=== PATIENT | male | born 1955 | race Caucasian/White ===

== ENCOUNTER 2016-12-01 10:41 | Observation (INO) ==
--- NOTE | 2016-12-01 13:57 | Nuclear Medicine Stress Report ---
Exercise Nuclear Stress Name: Abram Ron Date of Study: 12/01/2016 Date: 1955 Ht: 71.0 in Medical Record#: [id number] Age: 61 Wt: 176.0 lb Gender: Male Order #: [id number] Location: [facility] OP Room: opt Supervising Provider: Audra Fatima CNP Reading Physician: Ian Landry MD, FACC Ordering Physician: Josh Mason DO,FACGail,LAVELL,RC Primary Care Physician: Carmella Dao DO Stress Technologist: Sangeeta Tian, MARKETING OPERATIONS ASSOCIATE, CCT, CPFT Ophthalmology Surgical Technician: Brent Henriquez Indications: Chest Pain Impression: The exercise capacity was average. Exercise ECG is positive for ischemia with [address] depressions in the lateral leads. Gated LVEF = 53%. There is a large size, moderate-severe intensity, reversible perfusion defect involving the basal-apical anterior wall, basal-mid anterolateral wall, and apical lateral wall. Findings are consistent with a large area of reversible myocardial ischemia (LAD territory). There is mild transient ischemic dilatation. Findings discussed with patient. We will be admitted to the hospital for cardiac catheterization. History: Hypertension Diabetes Hypercholesteremia Prior PCI Stress Test Summary: Stress Test Type: Treadmill Protocol: Teto Baseline Information: Initial Heart Rate: 75 Blood Pressure: 120/60 Stress Information: Stress Time: 6 min 00 sec Test Terminated Due to (primary): Dyspnea Maximum Blood Pressure: 156/54 Maximum Heart Rate: 159 Percent Maximum Heart Rate Achieved: 99 Double Product: 35119 METS Reached: 7 Symptoms: Shortness of breath Nuclear Summary: SPECT myocardial perfusion imaging using Tc99m Sestamibi given intravenously was performed at rest and following cardiac stress testing. The resting images were obtained following initial dose of 11.6 mCi. Following stress an additional dose of 32.2 mCi was given at peak exercise or 30 seconds post regadenoson infusion. Findings: Stress Note * Resting ECG demonstrated normal sinus rhythm. * No baseline arrhythmias were noted. * The exercise capacity was average. * Patient had no chest pain during stress. * No arrhythmias were noted during stress. * Exercise ECG is positive for ischemia with [address] depressions in the lateral leads. Hemodynamic responses * Normal hemodynamic responses to exercise. Gated EF % * Gated LVEF = 53%. Left Ventricle * The left ventricle is not dilated. * Normal Segmental Perfusion in rest. * There is a large size, moderate-severe intensity, reversible perfusion defect involving the basal-apical anterior wall, basal-mid anterolateral wall, and apical lateral wall. * Findings are consistent with a large area of reversible myocardial ischemia (LAD territory). TID * There is mild transient ischemic dilatation. Updated by Ian Landry MD, [facility] on 12/01/2016 1:52:30 PM electronically signed on 12/01/2016 1:52:58 PM with status of Final
--- NOTE | 2016-12-01 14:35 | Cardiology History & Physical ---
Date of Encounter: 12/01/16 Time of Encounter: 14:20 Assessment and Plan (1) Abnormal stress test Current Visit: Yes Status: Acute Stress test positive for large area of reversible ischemia in the LAD territory , ischemic EKG changes, blunted b/p response and TID. Recommended for admission for [facility]. Indications, risks, alternatives, and benefits discussed and he agrees to proceed. Discussed with Dr. Fisher. Will give lovenox SQ x1 tonight. Check labs and CXR. [facility] in am. Continue asa, plavix, statin, and bb. TTE pending. (2) Unstable angina Current Visit: Yes Status: Acute Currently pain free. NTG SL PRN. See plan above. (3) CAD (coronary artery disease) Current Visit: Yes Status: Acute H/o TN and previous PCI. Last [facility] 07/10/2014: Left main normal. LAD proximal 95% stenosis, PTCA/MARCY placed. Circumflex, OM1 normal. RCA distal RCA patent stent. RPDA 50% stenosis. Echocardiogram 07/08/2014: EF 55-60%. Moderate asymmetric hypertrophy of the basal septum. Moderate diastolic dysfunction. No valvular dysfunction. Repeat TTE pending. Qualifiers: Coronary Disease-Associated Artery/Lesion type: [place] artery [place] vs. transplanted heart: [place] heart Associated angina: with unstable angina Qualified Code(s): I25.110 - Atherosclerotic heart disease of [place] coronary artery with unstable angina pectoris (4) Diabetes Current Visit: No Status: Chronic Continue home medications. On metformin, will be held per [facility] protocal. Will assess blood sugars and provide coverage if needed during stay. Qualifiers: Diabetes mellitus type: type 2 Diabetes mellitus complication status: without complication Diabetes mellitus ocean transportation intermediary insulin use: without ocean transportation intermediary use Qualified Code(s): E11.9 - Type 2 diabetes mellitus without complications History of Present Illness Chief complaint: chest discomfort HPI: Mr. Ron is a 61 year old male with a history of CAD, TN s/p prior PCI to the LAD and RCA, HLD, HTN, and diabetes type II. He presented today for a stress test and echocardiogram in the out-pt cardiopulmonary lab. 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 He described a mid-sternal burning that sometimes occurred with activity. No chest discomfort in the last week. Admits to occasional SOB with exertion. Stress test revealed severe intensity reversible defect in the LAD territory. D/t severity of stress test he was recommended to be admitted for C. Past Med Surg Social Fam HX - Past Medical History Attestation: Yes The following information was validated with the patient. Medical history: coronary artery disease, diabetes, hyperlipidemia, hypertension - Past Surgical History Surgical History: angioplasty/stent (9 stnets) - Social History Smoking Status: Never smoker Smokeless Tobacco Status: No Alcohol use: none Medications and Allergies Amlodipine 03/02/16 [History] Aspirin 81 mg 03/02/16 [History] Lipitor 40 mg 03/02/16 [History] Losartan 100 gm DAILY 03/02/16 [History] Metoprolol 100 mg DAILY 03/02/16 [History] Azithromycin [Azithromycin 6-Tab Pack] 250 mg PO DAILY #6 tab 06/15/16 [Rx] GuaiFENesin ER [Mucinex] 1 - 2 tab PO BID PRN #40 tab 06/15/16 [Rx] Clopidogrel [Plavix] 75 mg PO DAILY 12/01/16 [History] Allergies lisinopril Allergy (Verified 03/02/16 18:22) Cough All Systems Review: A 10-system review of systems was performed and is negative for pertinent findings except as documented above in the HPI. Physical Examination General: Conversant, No Apparent Distress HEENT: Atraumatic, Normocephaly, Mucus Membranes Moist Neck: No JVD, Normal carotid pulses Cardiac: Reg Rate and Rhythm, Normal S1 and S2, No Murmur Lungs: Normal Breath Sounds, No Wheeze, Rales, Rhonchi Neuro: Alert and responsive, No focal deficits noted Abdomen: Soft, Non-Tender Skin: No rashes noted on visualized skin Musculoskeletal: No Chest Wall Tenderness Extremities: No Clubbing, No Cyanosis, No Edema, Normal Pulses Results - Imaging and Cardiology Stress Test: report reviewed Echo: pending - EKG Interpretation EKG results cardiology: personally reviewed
[2016-12-01 15:15] LABS: Basophils % 0.4 %; Eosinophils % 0.3 %; Hematocrit 39.3 % (37.5-50.1); Hemoglobin 13.8 g/dL (12.9-16.9); Immature Granulocytes % 0.3 % (0-4); Immature Platelets 4.2 % (1.1-6.1); Lymphocytes % 13.9 %; Mean Corpuscular HGB Conc 35.1 g/dL (31.6-35.5); Mean Corpuscular Hemoglobin 31.4 pg (28.0-33.3); Mean Corpuscular Volume 89.3 fL (83.0-100.0); Mean Platelet Volume 9.6 fL (9.4-12.4); Monocytes # 0.5 K/mcL (0.0-1.3); Monocytes % 7.3 %; Neutrophils # 5.5 K/mcL (1.6-8.9); Platelet Count 219 K/mcL (140-400); Red Cell Distribution Width 12.4 % (11.5-14.5); Segmented Neutrophils % 77.8 %
[2016-12-01] MEDS ORDERED: Nitroglycerin 0.4 MG TAB.SUBL SL PRN (15:21)
[2016-12-01] MEDS ORDERED: *HR* Enoxaparin 80 MG/0.8 ML SYRINGE SQ STA (15:21)
[2016-12-01] MEDS ORDERED: Acetaminophen 325 MG TABLET PO PRN (15:23)
[2016-12-01] MEDS ORDERED: Naloxone 0.4 MG/ML INJ IVP PRN (15:23)
[2016-12-01 15:29] LABS: BUN/Creatinine Ratio 17 (6-26); Blood Urea Nitrogen 15 mg/dL (8-26); Calcium 9.2 mg/dL (8.6-10.8); Carbon Dioxide 24 mEq/L (19-29); Chloride 106 mEq/L (98-109); Glucose 125 mg/dL (70-99); Osmolality,Calculated 292 (280-300); Potassium 3.7 mEq/L (3.5-4.5); Sodium 140 mEq/L (136-145); eGFR For African Americans > 60 (> 60); eGFR For Non-African Americans > 60 (> 60)
[2016-12-01 16:08] LABS: INR 1.1; Prothrombin Time 11.9 Seconds (9.4-12.1)
[2016-12-01] MEDS: Aspirin 81 MG TAB.CHEW PO SCH (16:18)
[2016-12-01] MEDS: amLODIPine 5 MG TABLET PO SCH (16:19)
[2016-12-01] MEDS: *HR* Metformin 500 MG TABLET PO SCH (16:20)
[2016-12-02] MEDS ORDERED: *HR* Heparin 10,000 UNIT/10 ML VIAL ONE (07:40)
[2016-12-02] MEDS ORDERED: 0.9 % Sodium Chloride 1,000 ML ONE ×2 (07:40→08:11)
[2016-12-02] MEDS ORDERED: Verapamil 5 MG/2 ML VIAL ONE (07:40)
[2016-12-02] MEDS ORDERED: Heparin 1,000 UNITS/500 mL NS 500 ML ONE (07:40)
[2016-12-02] MEDS ORDERED: Nitroglycerin 1,000 MCG/10 ML VIAL IV ONE (07:41)
[2016-12-02] MEDS: Aspirin 81 MG TAB.CHEW PO SCH (07:42)
[2016-12-02] MEDS: amLODIPine 5 MG TABLET PO SCH (07:42)
[2016-12-02] MEDS: *HR* Metformin 500 MG TABLET PO SCH (07:45)
[2016-12-02] MEDS ORDERED: *HR* FentaNYL (PF) 100 MCG/2 ML VIAL ONE ×2 (08:10→08:47)
[2016-12-02] MEDS ORDERED: *HR* Midazolam HCl 5 MG/5 ML VIAL IVP ONE (08:11)
--- NOTE | 2016-12-02 08:21 | Pre-Sedation Evaluation ---
Pre-sedation evaluation - Pre-sedation checklist Date of procedure: 12/02/16 Procedure: HEART CATH Recent Vitals: Last Vital Signs Temp 97.9 F 12/02/16 03:13 Pulse 73 12/02/16 03:13 Resp 15 12/02/16 03:13 BP 141/85 12/02/16 03:13 Pulse Ox 100 12/02/16 03:13 Previous reaction to sedatives/anesthetics: No Dietary Status: NPO after Midnight Dentition: No loose teeth or bridges ASA Classification *see protocol: CLASS II-Mild systemic disease Plan of Care: Pt appropriate candidate for procedure/moderate/conscious sedation , Risks/benefits of procedure/sedation discussed w/ patient/family
[2016-12-02] MEDS ORDERED: Nitroglycerin Spray 4.9 GM BOTTLE ONE (08:47)
--- NOTE | 2016-12-02 09:08 | Invasive Diagnostic Lab Proc ---
Name: Abram Ron Date of Study: 12/02/2016 Date: 1955 Ht: 70.9in Medical Record#: [id number] Age: 61 Wt: 180.78lb Gender: Male BSA: 2.02 Order #: [id number] BMI: 25.31 Physicians Procedure Physician: Teto Fisher MD, [facility] Referring MD: Carmella Dao DO Referring MD: Indications Indication Abnormal Test - Stress Procedures Performed Procedure L HRT ARTERY/VENTRICLE ANGIO Pre-Procedure Checklist Informed consent is complete signed and on chart. H\\T\\P is on chart. ID band is on and ID verified with patient. Patient NPO for procedure The procedure was described for the patient and questions were answered. Blood Pressure: 141/85 ECG is on chart. Rhythm: NSR Plan of Care Patient will tolerate the procedure without complications. Adequate level of comfort will be maintained. Hemodynamics will remain stable Patient will recover from procedure without complications. Respiratory function will be maintained. Cardiac rhythm will remain stable. Patient temperature will be maintained. Patient and/or family have verbalized understanding of the procedure. Patient Education Chief Complaint/Reason for Test: Cardiac Cath Developmental Category: Adult (18-64 years) Developmentally Appropriate for Age: Yes Learning Barriers: None Education Needs: Procedure Education Method: Verbal Information Taught: Cardiac Cath Educational Evaluation: Able to repeat information Intravenous Access Time IV Size Location DC'd Fluid/Drip Rate Units RN 07:57 AM 22g 1" Patent On Arrival Rt Antecubital Alber Kebede RN 08:21 AM 20g 1 1/4" Patent On Arrival Lt Antecubital 0.9NaCl 25 ml/hr Alber Kebede RN Allergies lisinopril Vital Signs Time BP (mmHg) HR (bpm) O2 Sat. RR (bpm) LOC 07:57 AM 141 / 85 73 100 % 15 5 = Fully awake and oriented or at pre-proc level 08:11 AM / % 5 = Fully awake and oriented or at pre-proc level 08:11 AM / % 4 = Oriented but drowsy 08:26 AM / % 5 = Fully awake and oriented or at pre-proc level 08:13 AM 171 / 93 70 97 % 13 08:21 AM 192 / 87 71 97 % 25 08:25 AM 160 / 75 67 95 % 24 08:30 AM 168 / 83 64 95 % 19 08:35 AM 142 / 60 64 95 % 10 08:40 AM 145 / 68 65 94 % 10 08:45 AM 147 / 81 63 95 % 12 08:50 AM 144 / 67 64 93 % 11 08:41 AM / % 5 = Fully awake and oriented or at pre-proc level Procedural Medications Time Medication Dose Units Method Given By 08:11 AM Oxygen 2 L/min nasal cannula Kaleigh Graham RN 08:21 AM Versed 3 mg Intravenous Liliane Dallas RN 08:22 AM Fentanyl 50 mcg Intravenous Liliane Dallas RN 08:29 AM Lidocaine 2% 0.5 ml Subcutaneous Teto Fisher MD, FACC 08:31 AM Versed 1 mg Intravenous Liliane Dallas RN 08:31 AM Fentanyl 25 mcg Intravenous Liliane Dallas RN 08:32 AM Heparin 4000 units Nitroglycerin 200 mcg Verapamil 2.5 mg Intraarterial Teto Fisher MD, FACC 08:47 AM Fentanyl 50 mcg Intravenous Liliane Dallas RN 08:48 AM Nitroglycerin 400 mcg Sublingual Kaleigh Graham RN ASA Classification: CLASS II- Mild systemic disease (i.e. well-controlled diabetes, hypertension, asthma, cigarette smoking) Sharonda Score Preprocedure Postprocedure Activity 2- Moves 4 extremities sustained head lift Activity 2- Moves 4 extremities sustained head lift Circulation 2- SBP +/= 20 points of pre-anesthetic level Circulation 2- SBP +/= 20 points of pre-anesthetic level Consciousness 2- Awake and alert oriented x 3 Consciousness 2- Awake and alert oriented x 3 O2 Saturation 2- Able to maintain O2 satruation of 92% on room air O2 Saturation 2- Able to maintain O2 satruation of 92% on room air Respiratory 2- Able to deep breathe and cough well Respiratory 2- Able to deep breathe and cough well Total Score 10 Total Score 10 Contrast Agent: Isovue Diagnostic Contrast: 51 ml Total Contrast: 51 ml Fluoro Dose: 258 mGy Procedure Log Time Note Enter By 07:38 AM CathStat 08:10 AM Pt arrived to laborer heading 2 at 08:05 csmith 08:10 AM Patient charges- Angio tray pack, Navilyst 3mm J, Pulse Oximetry and ACIST tubing and transducer csmith 08:10 AM Hair removed from procedure site in procedure lab using clippers. Right wrist and right groin prepped with Chloraprep by Santos, Kaleigh RN, safety strap applied then patient was draped. Skin intact. csmith 08:10 AM Physician arrived 08:10 csmith 08:10 AM ASA Class CLASS II- Mild systemic disease (i.e. well-controlled diabetes, hypertension, asthma, cigarette smoking) csmith 08:10 AM Meet and greet completed csmith 08:10 AM Sign in performed according to hospital policy. csmith 08:10 AM Procedure start 08:10 csmith 08:11 AM Case Start 08:11 AM Time: 08:11 Oxygen on at 2 L/min per nasal cannula by Kaleigh Graham RN [facility] 08:11 AM Time: 08:11 Patient comfortable and pain free: Yes [facility] 08:11 AM Time: 08:11LOC: 5 = Fully awake and oriented or at pre-proc level csmith 08:12 AM Vitals capture started with the following parameters, Patient=Adult, Interval=5 min, Initial Qztgnzsq=691 mmHg, Deflation Rate=5 mmHg, Cuff placed on Left Arm 08:12 AM Recorded ECG: HR=75 Condition=Condition 1 08:13 AM HR=70 bpm, YGTT=723/93 mmhg, SpO2=97.0 %, Resp=13 B/min, Comment=nsr 08:15 AM 22ga to R AC not flushingneymar attempting to start new IV, 22ga dc'd csmith 08:20 AM Vitals capture started with the following parameters, Patient=Adult, Interval=5 min, Initial Bvgocxts=673 mmHg, Deflation Rate=5 mmHg, Cuff placed on Left Arm 08:21 AM HR=71 bpm, NZQG=379/87 mmhg, SpO2=97.0 %, Resp=25 B/min, Comment=nsr 08:22 AM Time: 08:21 Versed 3 mg Intravenous Given by Liliane Dallas RN [facility] 08:22 AM Time: 08:22 Fentanyl 50 mcg Intravenous Given by Liliane Dallas RN [facility] 08:25 AM HR=67 bpm, SGJB=406/75 mmhg, SpO2=95.0 %, Resp=24 B/min, Comment=nsr 08:26 AM Time: 08:11LOC: 4 = Oriented but drowsy [facility] 08:26 AM Time: 08:11 Patient comfortable and pain free: Yes csmith 08:29 AM Time out performed according to hospital policy csmith 08:30 AM Time: 08:29 0.5 ml Lidocaine 2% to right radial Subcutaneous Given by Teto Fisher MD, [facility] csmith 08:30 AM HR=64 bpm, JQGR=296/83 mmhg, SpO2=95.0 %, Resp=19 B/min, Comment=nsr 08:31 AM Time: 08:31 Versed 1 mg Intravenous Given by Liliane Dallas RN csmith 08:31 AM Time: 08:31 Fentanyl 25 mcg Intravenous Given by Liliane Dallas RN csmith 08:32 AM Access obtained by percutaneous puncture. 5Fr 10cm Terumo Glidesheath sheath placed in right Radial artery. [id number] csmith 08:32 AM Time: 08:32 Patient given 4,000 units Heparin, 200 mcg Nitroglycerin, and 2.5 mg Verapamil Intraarterial by Teto Fisher MD, [facility] csmith 08:32 AM Pressure channel 1 zeroed. 08:33 AM 5Fr FR 4 catheter inserted over the wire [facility] csmith 08:33 AM 0.035 260cm Navilyst 3mmJ wire [id number] csmith 08:34 AM wire removed csmith 08:34 AM 0.035 150cm VSI Clay-Torque wire [id number] csmith 08:35 AM Recorded Pressure: Ao, HR=67, Condition=Condition 1 (Aorta) Ao 98/72/84 08:35 AM HR=64 bpm, VGIA=791/60 mmhg, SpO2=95.0 %, Resp=10 B/min, Comment=nsr 08:36 AM RCA angiography performed in multiple views. csmith 08:36 AM Coronary Dominance: right csmith 08:36 AM Lesion found in Right PDA. Pre Stenosis: 15 Pre MALLORY Flow: 3: Complete and Brisk Flow/Perfusion csmith 08:36 AM Lesion found in Proximal RCA. Pre Stenosis: 15 Pre MALLORY Flow: 3: Complete and Brisk Flow/Perfusion csmith 08:36 AM catheter removed csmith 08:36 AM 5Fr JL 3.5 catheter inserted over the wire [id number] csmith 08:37 AM LCA angiography performed in multiple views. csmith 08:37 AM Recorded Pressure: Ao, HR=67, Condition=Condition 1 (Aorta) Ao 96/67/81 08:40 AM HR=65 bpm, YCDP=298/68 mmhg, SpO2=94.0 %, Resp=10 B/min, Comment=nsr 08:41 AM Lesion found in 1st Diagonal. Pre Stenosis: 100 Pre MALLORY Flow: 0: No Flow/No perfusion csmith 08:41 AM Time: 08:26 Patient comfortable and pain free: Yes csmith 08:41 AM Time: 08:26LOC: 5 = Fully awake and oriented or at pre-proc level csmith 08:42 AM Catheter removed csmith 08:42 AM 5Fr Pigtail catheter inserted over the wire DN csmith 08:42 AM catheter removed csmith 08:43 AM 6Fr Pigtail [facility] 08[facility]45 AM HR=63 bpm, FMET=245/81 mmhg, SpO2=95.0 %, Resp=12 B/min, Comment=nsr 08:48 AM Time: 08:47 Fentanyl 50 mcg Intravenous Given by Liliane Dallas RN [facility] 08:48 AM Time: 08:48 Nitroglycerin 400 mcg Sublingual Given by Kaleigh Graham RN [facility] 08:48 AM catheter removed csmith 08:49 AM 5Fr MPA1 catheter inserted over the wire [id number] csmith 08:49 AM Catheter selectively placed in left ventricle csmith 08:49 AM Recorded Pressure: LV, HR=63, Condition=Condition 1 (Left Ventricle) LV 111/2/8 08:49 AM Bolus angiogram of left Ventricle complete: 10 ml/sec for a total of 30 mls csmith 08:50 AM Recorded Pressure: LV, Ao, HR=63, Condition=Condition 1 (Left Ventricle) LV 109/1/12, (Aorta) Ao 113/55/79 08:50 AM wire and catheter removed csmith 08:50 AM HR=64 bpm, AGLG=228/67 mmhg, SpO2=93.0 %, Resp=11 B/min, Comment=nsr 08:52 AM Procedure completed at 08:52 csmith 08:52 AM Sign out completed: Radiation Dose 258 mGy Fluoro Time: 5.2 Isovue 370 - 200ml contrast 51 ml given by Teto Fisher MD, [facility]. Complications: NoneCardiac Rehab Consult needed: YesConfirmed administered medications: Yes csmith 08:52 AM Isovue 370 - 200ml,1 Bottle(s) used. csmith 08:52 AM Arterial sheath pulled, Vasc Band closure device used and was Successful S/N. csmith 08:53 AM 9 ml air in Vasc Band. csmith 08:53 AM Post ECG NSR csmith 08:53 AM Post Blood Pressure 144/67 csmith 08:53 AM 08:53 Post Pulses Right radial 2+ csmith 08:53 AM Information taught Vasc Band csmith 08:53 AM Education needs Responsibilities of Patient in Care csmith 08:54 AM Education Methods Verbal csmith 08:54 AM Education evaluation Able to repeat information csmith 08:54 AM Site status No bleeding/hematoma - Rt Wrist as reported by Judy Tucker RT at 08:54 csmith 08:54 AM Plavix, Effient or Brilinta given No csmith 08:54 AM Family placed in consult room. csmith 08:56 AM Time: 08:41 Patient comfortable and pain free: Yes csmith 08:56 AM Time: 08:41LOC: 5 = Fully awake and oriented or at pre-proc level [facility] Complications Complication None Hemodynamics Pressures Site Systolic/A Wave Diastolic/V Wave Mean AO 98 72 84 AO 96 67 81 LV 111 2 8 LV 109 1 12 AO 113 55 79 Post Procedure Information Blood Pressure: 144/67 mmHg Rhythm: NSR Post procedural instructions were given Closure Device Time Device Success/Fail 12/02/2016 8:59:00 AM Mechanical Compression Successful Site Checks Time Location Status Staff Sheath In? Note 08:54 AM Rt Wrist No bleeding/hematoma Judy Tucker RT Pulses Time Site Pre-Procedure Post-Procedure Note 12/02/2016 7:55:00 AM Bilateral DP \\T\\ PT 2+ 12/02/2016 7:55:00 AM Bilateral radial 2+ 8:53:00 AM Right radial 2+ Updated by Alber Kebede RN on 12/02/2016 9:01:47 AM electronically signed on 12/02/2016 9:02:43 AM with status of Final
--- NOTE | 2016-12-02 09:15 | ECHO - Doppler Report ---
Echocardiogram Name: Abram Ron Date of Study: 12/01/2016 Date: 1955 Ht: 71.0 in Medical Record#: [id number] Age: 61 Wt: 176.0 lb Gender: Male BSA: 2 Order #: [id number] Location: [facility] OP Room #: Reading Physician: Ian Landry MD, [facility] Computer Artist: Jazzy Sorto Ordering Physician: Josh Mason DO,LAVELL ROBLES FASNC Primary Physician: Carmella Dao DO Indications: Chest discomfort Impressions: Normal LV systolic function, LVEF 60-65%. Normal right ventricular size and function. No significant valvular dysfunction. Unable to estimate RVSP due to lack of TR jet. Left Ventricular Wall Motion: Rest Echo Findings All wall segments showed normal motion. Findings: Study Quality * Technically adequate exam. ECG Findings * Normal sinus rhythm. Left Ventricle * Normal LV systolic function, LVEF 60-65%. * Normal LV chamber size and wall thickness. * Indeterminate diastolic function. Right Ventricle * Normal right ventricular size and function. Left Atrium * Normal left atrial size. Right Atrium * Normal right atrial size. Aorta * Normally sized aortic root. Pericardium * There is no pericardial effusion present. IVC * Normal IVC dimensions and inspiratory collapse. Aortic Valve * Trileaflet aortic valve. * No aortic stenosis. * No aortic regurgitation. Mitral Valve * Mild mitral annular calcification * No mitral stenosis. * Trace mitral regurgitation. Tricuspid Valve * Normal tricuspid valve structure. * No tricuspid stenosis. * Trace tricuspid regurgitation. * Unable to estimate RVSP due to lack of TR jet. Pulmonic Valve * Pulmonic valve not well visualized. * No pulmonic stenosis. * Trace pulmonic regurgitation. History Hypertension Diabetes Hypercholesteremia Family History of CAD History of CAD/PTCA Myocardial Infarction 07/08/14 a Previous Echo was performed. Measurements: BP: 136/ 80 2D Normal Values RVIDd: 3.30 cm IVSd: 1.00 cm 0.6 - 1.0 cm LVIDd: 4.10 cm 3.7 - 5.6 cm LVPWd: 1.00 cm 0.6 - 1.1 cm LVIDs: 2.80 cm 1.5 - 3.6 cm AO: 3.30 cm < 4.0 cm %FS: 31.70 cm >25 % LA volume: 27 Mitral Valve Peak E:.92 m/sec Peak A:.81 m/sec E/A Ratio:1.1 Updated by Ian Landry MD, [facility] on 12/02/2016 9:10:38 AM electronically signed on 12/02/2016 9:11:04 AM with status of Final Wall Motion Sal[place]o: 1=Normal, 2=Hypokinesis, 3=Akinesis, 4=Dyskinesis, 5=Aneurysmal, 6=Hyperkinetic, X=Not Visualized (Blank)=Missing
--- NOTE | 2016-12-02 11:57 | Invasive Diagnostic Lab ---
Name: Abram Ron Date of Study: 12/02/2016 Date: 1955 Ht: 180.0 cm /70.9 in Medical Record#: [id number] Age: 61 Wt: 82. kg / 180.78 lb Account/Order#: [id number] Gender: Male BSA: 2.02 Order #: [id number] Fluoro Dose: 258 mGy BMI: 25.31 Procedure Physician: Teto Fisher MD, FACC Referring MD: Carmella Dao DO Referring MD: Procedures Performed: LEFT HEART CATH Indications: Abnormal Test - Stress Impressions: There is severe one vessel coronary artery disease. The left ventricle is normal and has normal contractility EF 60% Stent placed from a prior procedure in the Proximal LAD is patent. Stent placed from a prior procedure in the proximal and mid RCA is patent. The patient did have a radial artery spasm near the conclusion of the case requiring SL NTG and without sequelae. Recommendations: Optimal medical therapy of patient's disease. Aggressive risk factor modification. Consider transfemoral approach (or 4/5F radial sheath), if LHC is indicated in the future. History/Risk Factors: CAD DM DHL HTN Neuopathy Unstable angina Abnormal stress test Procedure Access obtained in the right Radial artery by percutaneous puncture. Multipurpose to cross the aortic valve. Complications: None Contrast: Isovue 51ml Closure Device: Mechanical Compression Hemodynamics: Pressures Site Systolic/ A Wave Diastolic/ V Wave End Diastolic/ Mean HR AO 98 72 84 67 AO 96 67 81 67 LV 111 2 8 63 LV 109 1 12 63 AO 113 55 79 63 LV Ventriculography Ejection Method: LV Gram Ejection Fraction: 60% Wall Motion: TORIBIO Anterobasal Normal Anterolateral Normal Apical: Normal Inferoapical Normal Inferobasal Normal Coronary Dominance: right Lesion Findings/Interventions * Left Main Coronary Artery The LMCA is angiographically free of disease. * Left Anterior Descending There is a patent stent in the proximal LAD. There is a 100% stenosis in the 1st Diagonal. The lesion has a MALLORY flow of 0. The vessel has contralateral and ipsalateral collaterals. The distal LAD is small and diffusely diseased. * Circumflex The Circumflex is angiographically free of disease. The 1st Marginal is angiographically free of meaningful disease. * Right Coronary Artery There is a patent stent noted in the proximal and mid RCA. There is a 15% stenosis in the Proximal RCA. The lesion has a MALLORY flow of 3. There is a 15% stenosis in the Right PDA. The lesion has a MALLORY flow of 3. Updated by Alber Kebede RN on 12/02/2016 9:00:51 AM Teto Fisher MD, FACC electronically signed on 12/02/2016 11:51:57 AM with status of Final
--- NOTE | 2016-12-02 12:12 | Discharge Summary ---
Date of Encounter: 12/01/16 Time of Encounter: 11:30 - Discharge Diagnosis (1) Abnormal stress test Priority: Primary Status: Acute Comments: Per cardiology: -Abnormal stress test in outpatient setting with subsequent direct admission for outpatient cath. - Discharge Medications Prescriptions: Nitroglycerin 0.4 mg SL Q5MIN PRN #30 tab.subl PRN Reason: Chest Pain Home Medications: Amlodipine [Norvasc] 5 mg PO DAILY 03/02/16 [History] Aspirin Enteric Coated [Aspirin EC] 81 mg PO DAILY 03/02/16 [History] Atorvastatin [Lipitor] 40 mg PO HS 03/02/16 [History] Losartan Potassium [Cozaar] 100 mg PO DAILY 03/02/16 [History] Metoprolol [Lopressor] 50 mg PO BID 03/02/16 [History] Clopidogrel [Plavix] 75 mg PO DAILY 12/01/16 [History] Metformin HCl [Glucophage] 1,000 mg PO BID 12/01/16 [History] Nitroglycerin 0.4 mg SL Q5MIN PRN #30 tab.subl 12/02/16 [Rx] Allergies/Adverse Reactions: Allergies lisinopril Allergy (Verified 03/02/16 18:22) Cough Procedures/tests Complete & Pending: Procedures Performed prior 72 hours Category Date Time Status CL Cardiac Catheterization [CL] Routine Formula Technician 12/01/16 14:22 Completed NM cherise perf SPECT multi [NM] Routine Exams 12/01/16 11:00 Taken EV echocardiogram Routine Y 12/01/16 13:00 Completed SP exercise nuclear stress Routine Y 12/01/16 11:00 Completed Date of admission: 12/01/16 14:39 Primary care physician: Silverio Dao Discharging clinician: Joesph Costa Anticipated date of discharge: 12/02/16 - Patient Status Disposition: Home, Self-Care Condition: Good Overall status at discharge: patient is progressing back to baseline - Discharge Instructions Follow Up With: Silveiro Dao DO [Primary Care Provider] - Additional Instructions: Follow up with cardiology. Cardiology office will call with appointment date and time. Resume metformin on 12/03/16. - Diet and Activity Activity: increase activity as tolerated, return to work once cleared by your PCP/specialist Diet: low fat, low cholesterol - Hospital Course Hospital course: Mr. 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 Patient was subsequently admitted for C. LHC showed patent LAD stent. No intervention needed. Echo with LVEF 55%. Patient will follow up with on Tuesday regarding [employer] paper work to return to work. No medication changes were made. Patient will hold metformin today and will resume 12/03/16. Right radial access site care education given. No hematoma or ecchymosis noted at site. Patient being prepped for discharged today in stable condition. - Time Spent with Patient Total time spent providing and/or coordinating discharge services: Less than 30 minutes Physical Examination Vital Signs, Last 4 Hours Temp Pulse Resp BP Pulse Ox 12/02/16 11:29 97.3 F L 66 16 105/63 96 12/02/16 10:30 97.4 F L 65 16 111/70 96 12/02/16 10:00 97.5 F L 65 16 111/68 95 12/02/16 09:33 94 L 12/02/16 09:30 97.7 F 64 16 96/58 94 L General: Conversant, No Apparent Distress HEENT: Atraumatic, Normocephaly, Mucus Membranes Moist Neck: No JVD, Normal carotid pulses Cardiac: Reg Rate and Rhythm, Normal S1 and S2, No Murmur Lungs: Normal Breath Sounds, No Wheeze, Rales, Rhonchi Neuro: Alert and responsive, No focal deficits noted Abdomen: Soft, Non-Tender Skin: No rashes noted on visualized skin, Other (Right radial access site without hematoma or ecchymosis. ) Musculoskeletal: No Chest Wall Tenderness Extremities: No Clubbing, No Cyanosis, No Edema, Normal Pulses
[2016-12-02 12:33] VITALS: BP 112/72
== END 2016-12-02 13:11 | disposition home or self-care (01) ==
LOC: 3BNU 10:41 → CARSER 10:41 → 3BNU 14:07
PROVIDERS: ADMIT Internal Medicine; ATTEND Internal Medicine